=== PATIENT | female | born 1990 | race Caucasian/White ===

== ENCOUNTER → 2017-04-17 | Outpatient (CLI) | payer MEDICAID ==
[2017-04-17 16:33] LABS: CH 27.7; HDW 2.41; HGB 12.7 gm/dL (11.4-16.0); MCH 28.1 pg (25.0-35.0); MCHC 33.4 g/dL (31.0-37.0); MCV 84.2 fL (80.0-100.0); Mean Platelet Volume 7.3; RBC 4.51 m/uL (3.80-5.40); RDW 13.8 % (11.5-15.5); WBC 11.4 k/uL (3.8-10.6)
[2017-04-17 16:43] LABS: Glucose 81 mg/dL (74-99); Non-African American GFR(MDRD) >60 (>60 ml/min/1.73 sqM)
[2017-04-17 17:14] LABS: Hepatitis B Surface Ag Index 0.05
--- NOTE | 2017-04-17 21:19 | US ---
EXAMINATION TYPE: US OB <= 14 wk fetus DATE OF EXAM: 04/17/2017 COMPARISON: NONE CLINICAL HISTORY: Confirm Dates Z36. LGA EXAM PERFORMED: Transabdominal (TA) EXAM MEASUREMENTS: GESTATIONAL AGE / DATING Physician Established: (13 weeks/2 days) EDC: 10/21/2017 Dates by LMP: (13 weeks/2 days) EDC: 10/21/2017 First Scan: today Dates by Current Scan for: (13 weeks/2 days) EDC: 10/21/2017 MATERNAL ANATOMY Uterus: 13.2 x 7.0 x 6.8cm Right Ovary: 2.5 x 1.5 x 1.7cm Left Ovary: not seen Post CDS / Adnexa: wnl Presence of free fluid: no Presence of corpus luteal cyst: not seen Presence of subchorionic bleed: no GESTATION / SURVEY CRL: 7.2cm (13 weeks/2 days) Yolk Sac (normal less than 6mm): not seen Heart Rate: 153 bpm Rhythm: Normal IUP: single Nuchal Translucency 10-14wks (normal less than 3mm): not measured due to constant movement Date of LMP: 01/14/2017 Beta HcG (if available): NA Single live intrauterine gestation is seen as gestational sac and pole are identified. Yolk sac is not clearly present. No free fluid is seen in pelvic cul-de-sac. Right ovary is seen. Left ovary is not clearly identified. No suspicious adnexal masses present bilat erally. IMPRESSION: Single live intrauterine gestation is present, mean crown-rump length is 7.2 cm corresponding to 13 w [place] 2 day old fetus.
[2017-04-18 02:10] LABS: Treponemal Ab Non-Reactive (Non-Reactive)
[2017-04-18 04:36] LABS: Toxoplasma Antibody (IgG) <3.0 IU/mL (<7.2)
== END | disposition home or self-care (01) ==
LOC: RADUSWWP 15:34
PROVIDERS: ATTEND Obstetrics & Gynecology
DX: Z36 Encounter for antenatal screening of mother (principal)
CPT/HCPCS: 76801; 82565; 82947; 85027; 86762; 86777; 86778; 86780; 86850; 86900; 86901; 87340; 87390

== ENCOUNTER → 2017-05-29 | Outpatient (CLI) | payer MEDICAID ==
--- NOTE | 2017-05-29 13:36 | US ---
EXAMINATION TYPE: US OB anatomy transabd DATE OF EXAM: 05/29/2017 COMPARISON: Previous study dated 04/17/2017. HISTORY: O36.62X0 Large for dates 2nd Trimester TECHNIQUE: Transabdominal (TA) EXAM MEASUREMENTS: GESTATIONAL AGE / DATING Physician Established: (19 weeks/2 days) EDC: 10/21/2017 Dates by LMP: (19 weeks/2 days) EDC: 10/21/2017 Dates by First Scan: (19 weeks/2 days) EDC: 10/21/2017 Dates by Current Scan for: (18 weeks/4 days) EDC: 10/26/2017 SURVEY IUP: Single PLACENTA: Anterior PREVIA: No previa ODETTE: 12.2 cm Normal CERVICAL LENGTH (transabdominal: norm > 3.0cm): 4.5 cm BIOMETRY PRESENTATION: Vertex BPD: 4.1 cm 18 weeks / 3 days HC: 15.2 cm 18 weeks / 2 days AC: 13.2 cm 18 weeks / 5 days FL: 3.1 cm 19 weeks / 4 days ESTIMATED WEIGHT IN GRAMS: 268 grams ESTIMATED WEIGHT IN LBS/OZS: 0 lbs. 9 oz. WEIGHT PERCENTAGE BASED ON ESTABLISHED DATE: 29.3 % HC/AC: 1.2 Normal FL/AC: 23.4 Normal HEART RATE: 151 bpm RHYTHM: Normal ANATOMY SEEN (within normal limits): * Lateral Vent (< 1 cm) 0.8 cm * Cisterna Magna (< 1.1 cm) 0.5 cm * Nuchal Fold (< 0.6 cm) 0.3 cm * Cerebellum (varies with age) 1.8 cm Choroid Plexus (bilateral) Midline Falx Cavus Septi Pellucidi Four Chamber Heart Stomach signal in CX Situs Nose / Lips Diaphragm Kidneys (bilateral) Bladder Cord Insert Three Vessel Cord Longitudinal Spine Transverse Spine Arms (bilateral) Legs (bilateral) ANATOMY NOT SEEN: Outflow tracts: LVOT/RVOT growth according to dates, patient returning 06/11/2017 for outflow tracts. IMPRESSION: LEIGH FETUS PRESENT IN A VERTEX LIE WITH A GESTATIONAL AGE OF 18 WEEKS 4 DAYS +/- 10 DAYS. ESTIMATED DATE OF CONFINEMENT BASED ON THIS EXAMINATION IS 10/26/2017.
[2017-05-31 08:21] LABS: Alpha Fetoprotein (M.O.M) 0.91 (Negative); B-HCG (M.O.M.) 2.71; Gestational Age (days) 2; Human Chorionic Gonadotropin 48.2 IU/mL; Inhibin A (M.O.M.) 1.55; Interpretation SeeBelow; Maternal Age at EDD (Yrs) 29; Smoker No; Unconjugated Estriol (M.O.M.) 1.04
== END | disposition home or self-care (01) ==
LOC: RADUSWWP 12:02
PROVIDERS: ATTEND Obstetrics & Gynecology
DX: O36.62X0 Maternal care for excessive fetal growth, second trimester, not applicable or unspecified (principal); Z34.02 Encounter for supervision of normal first pregnancy, second trimester; Z3A.19 19 weeks gestation of pregnancy
CPT/HCPCS: 36415; 76811; 82105; 82677; 84702; 86336

== ENCOUNTER → 2017-07-02 | Outpatient (CLI) | payer MEDICAID ==
[2017-07-02 12:22] LABS: CH 28.9; CHCM 32.1; HCT 35.7 % (34.0-46.0); HDW 2.64; HGB 11.6 gm/dL (11.4-16.0); MCH 29.5 pg (25.0-35.0); MCHC 32.5 g/dL (31.0-37.0); MCV 90.7 fL (80.0-100.0); Mean Platelet Volume 7.4; RBC 3.94 m/uL (3.80-5.40); RDW 15.4 % (11.5-15.5); WBC 10.9 k/uL (3.8-10.6)
== END | disposition home or self-care (01) ==
LOC: LABWHC1 10:00
PROVIDERS: ATTEND Obstetrics & Gynecology
DX: Z34.02 Encounter for supervision of normal first pregnancy, second trimester (principal); Z3A.00 Weeks of gestation of pregnancy not specified
CPT/HCPCS: 36415; 82950; 85027; 86850

== ENCOUNTER 2017-10-06 22:25 | Outpatient (CLI) | payer MEDICAID ==
[2017-10-06 23:06] VITALS: BP 129/71; PULSE 80; RESP 16; TEMP 98
--- NOTE | 2017-10-07 11:26 | P.MSEPDOC ---
Presenting Problems - Arrival Data Date of Arrival on Unit: 10/06/17 Time of Arrival on Unit: 22:27 Mode of Transport: Wheelchair - Complaint OB-Reason for Admission/Chief Complaint: Possible Onset of Labor Comment: pt has been feeling tightening all day today. states pain is constant Medical History - Information : 1 Para: 0 Term: 0 : 0 Abortions: Spontaneous or Elective: 0 Number of Living Children: 0 - Gestational Age Gestational Age by RENO (wks/days): 38 Weeks and 0 Days Review of Systems - Review of Systems Constitutional: No problems Breast: No problems ENT: No problems Cardiovascular: No problems Respiratory: No problems Gastrointestinal: No problems Genitourinary: No problems Musculoskeletal: No problems Neurological: No problems Skin: No problems Vital Signs - Temperature Temperature: 98.0 F Temperature Source: Oral - Pulse Right Sitting Brachial Pulse Rate: 80 Pulse Assessment Method: Automatic Cuff - Respirations Respiratory Rate: 16 Oxygen Delivery Method: Room Air - Blood Pressure Right Arm Sitting Blood Pressure: 129/71 Blood Pressure Mean: 90 Blood Pressure Source: Automatic Cuff Medical Screen Scoring (Pre) - Cervical Exam Dilation: 0 cm = 0 Membranes: Intact - Uterine Contractions Frequency: > or = 36 weeks =2 Duration: > 40 seconds = 2 - Maternal Vital Signs Maternal Temperature: N/A Maternal Blood Pressure: N/A Signs of Preeclampsia: N/A Maternal Respirations: N/A - Pain Assessment Pain Location and Character: Upper, Anterior, Abdomen Pain Scale Used: Numeric (1 - 10) Pain Intensity: 5 Pain Management Goal: 2 Pain Description: Tightness Pain Radiation Location: n/a Pain Frequency: Constant Pain Duration: 10 Pain Duration Units: Hours Pain Behavior: Facial Grimacing, Vocalization Pain Aggravating Factors: Activity, Bending Non-Pharmacological Interventions: Position/Reposition - Assessment Baseline FHR: 130 Heart Rate - NICHD Category: Category I (Normal) = 0 NST: Reactive Position: N/A Station: N/A - Total Score Total Score (Pre): 4 - Level of Risk Level of Risk: Low (0-5) Medical Screen Scoring (Post) - Post Treatment Level of Risk Post Treatment Level of Risk: Low (0-5) Physician Notification (Post) - Physician Notified Physician Notified Date: 10/06/17 Physician Notified Time: 23:55 Spoke With: ozuna New Order Received: Yes - Notification Comment Comment: d/c home, follow up 10/10/17 Disposition - Disposition OB Disposition: Discharge to home, Written follow up instructions reviewed Discharge Date: 10/07/17 Discharge Time: 00:00 I agree with the RN Medical Screening Exam: Yes Risk & Benefit of care provided described in d/c instruction: Yes Diagnosis: FALSE LABOR AT OR AFTER 37 COMPLETED WEEKS OF GESTATION
== END 2017-10-07 | disposition home or self-care (01) ==
LOC: FBPOP 22:25
PROVIDERS: ATTEND Obstetrics & Gynecology
DX: O47.1 False labor at or after 37 completed weeks of gestation (principal); Z3A.38 38 weeks gestation of pregnancy
CPT/HCPCS: 59025; 99213

== ENCOUNTER 2017-10-09 14:01 | Inpatient (IN) | payer MEDICAID ==
[2017-10-09] MEDS ORDERED: BUPIVACAINE (PF) 0.25% 30 ML VIAL ONE ×2 (15:35→18:38)
[2017-10-09] MEDS ORDERED: fentaNYL (PF) 50 MCG/ML 5 ML AMP ONE ×2 (15:35→18:38)
[2017-10-09] MEDS ORDERED: SODIUM CHLORIDE 0.9% 100 ML BAG ONE ×2 (15:35→18:38)
[2017-10-09] MEDS ORDERED: CARBOPROST TROMETHAMINE 250 MCG/ML 1 ML AMP IM PRN (16:15)
[2017-10-09] MEDS ORDERED: OXYTOCIN 10 UNIT/ML 1 ML VIAL IM PRN (16:15)
[2017-10-09] MEDS ORDERED: METHYLERGONOVINE 0.2 MG/ML 1 ML AMP IM PRN (16:15)
[2017-10-09] MEDS ORDERED: TERBUTALINE 1 MG/ML VIAL SQ PRN (16:15)
[2017-10-09] MEDS ORDERED: LIDOCAINE 1% (PF) 10 MG/ML (30 ML SDV) SQ PRN (16:15)
[2017-10-09] MEDS ORDERED: DINOPROSTONE 10 MG INSERT.ER VAGINAL ONE (16:16)
[2017-10-09 16:22] VITALS: BMI 37.4
[2017-10-09] MEDS ORDERED: BUTORPHANOL 1 MG/ML 1 ML VIAL IV PRN (16:51)
--- NOTE | 2017-10-09 17:25 | P.HPOB ---
History of Present Illness H&P Date: 10/09/17 Chief Complaint: Term at 38 weeks with questionable IUGR and oligohydramnios Angela is a 27-year-old at 38 weeks gestation who was seen yesterday with MFM and noted to have oligohydramnios. As she already had a baby measuring approximately the 11th percentile and with oligohydramnios a decision for induction was made between Dr. Andino and maternal- medicine. She is seen today for Cervidil ripening of her cervix due to her cervix being fingertip and approximately 70% effaced -3 station. Cervidil was placed without difficulty and the plan will be for induction of labor in the morning. Risks and benefits of this were reviewed with the patient between she and Dr. CHRISTY. Her course up to this point had been generally unremarkable and only recently was noted to have smaller than average measurements for baby B and then the oligohydramnios yesterday. Pertinent labs do include be negative blood type Rh antibody was negative. Rubella immune, hepatitis B surface antigen and RPR were both negative as was HIV. GBS was also negative. On physical exam vital signs are stable and afebrile. Heart regular, lungs clear, extremities without pain. Osteopathic exam is unremarkable. heart tones are in the 130s to 140s and reactive prior to placement of the Cervidil. Cervidil placed without difficulty. Assessment intrauterine at term. Oligohydramnios with SGA versus IUGR. Plan induction of labor in a.m. after cervical ripening Past Medical History Past Medical History: No Reported History History of Any Multi-Drug Resistant Organisms: None Reported Additional Past Surgical History / Comment(s): wisdom teeth removed Past Anesthesia/Blood Transfusion Reactions: No Reported Reaction Past Psychological History: No Psychological Hx Reported Smoking Status: Never smoker Past Alcohol Use History: None Reported - Past Family History Father Family Medical History: Hypertension Medications and Allergies Home Medications Medication Instructions Recorded Confirmed Type Pnv,Calcium 72/Iron/Folic Acid 1 tab PO DAILY 10/06/17 10/09/17 History [ Plus Tablet] Allergies Allergy/AdvReac Type Severity Reaction Status Date / Time No Known Allergies Allergy Verified 10/09/17 16:10 Exam Osteopathic Statement: *. No significant issues noted on an osteopathic structural exam other than those noted in the History and Physical/Consult. - Vital Signs Vital signs: Vital Signs Temp Pulse Resp BP Pulse Ox 10/09/17 16:17 96.0 F L 110 H 17 127/81 97 Intake and Output 10/09/17 10/09/17 10/09/17 06:59 14:59 22:59 Other: Weight 89.811 kg Patient Weight 10/10/17 06:59 Weight 89.811 kg
[2017-10-09] MEDS ORDERED: KETOROLAC 30 MG/ML 1 ML VIAL ONE (18:38)
[2017-10-09] MEDS ORDERED: OXYTOCIN 10 UNIT/ML 1 ML VIAL ONE (18:38)
[2017-10-09] MEDS ORDERED: MORPHINE SULFATE (PF) 0.3 MG/0.3 ML SYR ONE (18:38)
[2017-10-09] MEDS ORDERED: ONDANSETRON 4 MG/2 ML VIAL ONE (18:38)
[2017-10-10 05:59] LABS: Basophils % (A) 0 %; Eosinophils # (A) 0.1 k/uL (0-0.7); Eosinophils % (A) 1 %; HCT 42.1 % (34.0-46.0); HGB 13.2 gm/dL (11.4-16.0); Lymphocytes # (A) 2.9 k/uL (1.0-4.8); Lymphocytes % (A) 20 %; MCH 28.1 pg (25.0-35.0); MCHC 31.4 g/dL (31.0-37.0); MCV 89.5 fL (80.0-100.0); Mean Platelet Volume 8.9; Monocytes # (A) 0.8 k/uL (0-1.0); Monocytes % (A) 5 %; Neutrophils # (A) 10.2 k/uL (1.3-7.7); Neutrophils % (A) 72 %; Platelet Count 212 k/uL (150-450); RDW 15.9 % (11.5-15.5); WBC 14.2 k/uL (3.8-10.6)
[2017-10-10] MEDS: LACTATED RINGERS 1,000 ML IV SCH (06:06)
[2017-10-10] MEDS: OXYTOCIN 20 UNITS/1000 ML NS 1,000 ML IV SCH ×2 (06:06→20:33)
[2017-10-10] MEDS ORDERED: ceFAZolin IN SWFI 2 GM/20 ML SYRINGE IVP STA (18:17)
[2017-10-10] MEDS ORDERED: CITRIC ACID-SODIUM CITRATE 15 ML CUP PO ONE (18:17)
[2017-10-10] MEDS ORDERED: ONDANSETRON 4 MG/2 ML VIAL IVP PRN (19:29)
[2017-10-10] MEDS ORDERED: diphenhydrAMINE 25 MG CAP PO PRN (19:29)
[2017-10-10] MEDS ORDERED: diphenhydrAMINE 50 MG/ML 1 ML VIAL IVP PRN ×2 (19:29)
[2017-10-10] MEDS ORDERED: METOCLOPRAMIDE 5 MG/ML 2 ML VIAL IVP PRN (19:29)
[2017-10-10] MEDS ORDERED: NALOXONE 0.4 MG/ML 1 ML VIAL IV PRN (19:29)
[2017-10-10] MEDS ORDERED: diphenhydrAMINE 50 MG CAP PO PRN (19:29)
[2017-10-10] MEDS ORDERED: ZOLPIDEM 5 MG TAB PO PRN (19:29)
[2017-10-10] MEDS ORDERED: ONDANSETRON ODT 4 MG TAB PO PRN (19:32)
--- NOTE | 2017-10-10 19:39 | P.OP ---
Date of Procedure: 10/10/17 Preoperative Diagnosis: 1. at 38 weeks 2 days 2. IUGR 3. oligohydramnios 4. failure to progress Postoperative Diagnosis: 1. at 38 weeks 2 days 2. IUGR 3. oligohydramnios 4. failure to progress Procedure(s) Performed: Primary low transverse Anesthesia: epidural Surgeon: Becki Andino Security Field Supervisor #1: Jo Rodriguez Estimated Blood Loss (ml): 400 IV fluids (ml): 800 Urine output (ml): 100 Pathology: other (placenta) Condition: stable Disposition: floor Indications for Procedure: 27-year-old presented at 38 weeks and 2 days for induction of labor due to oligohydramnios and IUGR. She was diagnosed with IUGR 2 weeks ago and had another ultrasound with maternal- medicine earlier this week. When she went that ultrasound her fluid level was only 3.7 cm and the recommended delivery. Her cervix was closed so she came in for Cervidil induction of labor. After the Cervidil her cervix was 1 cm dilated, 70% effaced, and -3 station. Pitocin was started and she was randy every few minutes but only feeling them mildly. heart tones were 130-135 with minimal variability and reactive. Amniotomy was performed around 8 am clear fluid noted. She did progressed about 2-1/2 cm and was comfortable with an epidural. She did not progress further than this despite adequate contractions. The baby did start having some variable decelerations. At this point section was called and informed consent was obtained. Operative Findings: viable male, Apgars 9,9, weight 5#13oz, normal uterus, tubes and ovaries. Description of Procedure: Patient was taken to the operating room where spinal anesthesia was found be adequate. She was prepped and draped in normal sterile fashion in dorsal supine position with a leftward tilt. Pfannenstiel skin incision was made the scalpel and carried through to the underlying layer of fascia with the scalpel. Fascia was incised in midline and carried bilaterally with the Mao scissors. The superior aspect of the fascial incision was grasped with Erika clamps elevated and the underlying rectus muscles dissected off with the Mao's. Attention was then turned to inferior aspect of same incision which in a similar fashion was grasped tented up and the underlying rectus muscles dissected off with the Mao's. The rectus muscles were the midline and the peritoneum was identified tented up and entered sharply with the scalpel. The incision was extended superiorly and inferiorly with good visualization of the bladder. The bladder blade was inserted and the vesicouterine peritoneum was incised the Metzenbaums then carried bilaterally and bladder flap created digitally. A low transverse incision was then made on the uterus with the scalpel. This was carried bilaterally and digital manner. 's head delivered atraumatically, nose and mouth bulb suctioned, cord clamped and cut, infant handed off to waiting nurses. Apgars 9,9, weight 5 lbs. 13 oz. Placenta delivered manually, intact with three-vessel cord. The uterus is exteriorized and cleared of all clots and debris. The uterine incision was closed with 0 Vicryl in a running locked fashion. Second layer of the same sutures used in imbricating fashion to obtain excellent hemostasis. Bladder flap was then reapproximated using 2-0 Vicryl in a running fashion. Both ovaries and tubes appeared normal. The uterus was placed back into the abdomen. The peritoneum was reapproximated using 2-0 Vicryl in a running fashion. The muscles were reapproximated using 2-0 Vicryl in interrupted fashion. The fascia was reapproximated using 0 Vicryl in a running fashion. The subcutaneous tissues closed with 3-0 Vicryl running fashion. The skin was closed jerrod. Patient tolerated the procedure well, sponge and instrument counts were correct times 2 and she was taken to the recovery room in stable condition.
[2017-10-10] MEDS: SENNOSIDES-DOCUSATE SODIUM 1 EACH TAB PO SCH (22:55)
[2017-10-11] MEDS: KETOROLAC 30 MG/ML 1 ML VIAL IVP SCH ×5 (00:53→19:50)
[2017-10-11] MEDS: LACTATED RINGERS 1,000 ML IV SCH ×5 (00:53→19:50)
[2017-10-11] MEDS: ACETAMINOPHEN TAB 325 MG TAB PO PRN ×2 (04:24→13:27)
[2017-10-11 08:39] LABS: Basophils % (A) 0 %; Eosinophils # (A) 0.1 k/uL (0-0.7); Eosinophils % (A) 1 %; HCT 33.2 % (34.0-46.0); HGB 10.8 gm/dL (11.4-16.0); Lymphocytes # (A) 2.6 k/uL (1.0-4.8); Lymphocytes % (A) 21 %; MCH 28.2 pg (25.0-35.0); MCHC 32.6 g/dL (31.0-37.0); MCV 86.4 fL (80.0-100.0); Mean Platelet Volume 9.4; Monocytes # (A) 0.5 k/uL (0-1.0); Monocytes % (A) 4 %; Neutrophils # (A) 8.9 k/uL (1.3-7.7); Neutrophils % (A) 73 %; Platelet Count 159 k/uL (150-450); RBC 3.84 m/uL (3.80-5.40); RDW 15.1 % (11.5-15.5); WBC 12.3 k/uL (3.8-10.6)
--- NOTE | 2017-10-11 11:30 | P.PNOBGPC ---
Subjective - Subjective Principal diagnosis: S/P 1* low transverse postoperative day #1 Interval history: Patient seen and examined. Denies nausea, vomiting, chest pain, sugars of breath or calf pain. Her has been removed and she's been to the bathroom to void once. She is passing flatus. Patient reports: Reports appetite normal, Reports voiding normally, Reports pain well controlled, Reports ambulating normally : doing well Objective - Vital Signs Latest vital signs: Vital Signs Temp Pulse Pulse Resp BP Pulse Ox 10/11/17 08:00 97.6 F 71 18 126/69 97 10/11/17 04:00 98.8 F 84 16 130/68 96 10/11/17 00:00 98.3 F 71 16 144/75 95 10/10/17 21:41 98.5 F 69 16 119/59 96 10/10/17 21:11 86 16 128/63 96 10/10/17 20:57 98.5 F 76 16 122/61 96 10/10/17 20:26 77 16 119/60 10/10/17 20:13 83 16 115/57 10/10/17 19:57 87 16 121/55 10/10/17 19:43 85 16 139/69 97 10/10/17 19:25 99.6 F 85 16 136/63 Intake and Output 10/10/17 10/11/17 10/11/17 22:59 06:59 14:59 Intake Total 43.35 700 Output Total 300 200 Balance 43.35 400 -200 Intake: IV 700 Lactated Ringers 1,000 ml 700 @ 125 mls/hr IV .Q8H MARY Rx#:[id number] Intake, IV Titration 43.35 Amount Oxytocin 20 Units/1000 ml 43.35 Ns 1,000 ml @ 1 MILLIUNIT/MIN 3 mls/hr IV .Q24H MARY Rx#:[id number] Output: Urine 300 200 Other: Voiding Method Indwelling Catheter Toilet # Voids 0 1 - Exam Lungs: bilateral: normal Chest: Normal S1, Normal S2 Extremities: Present: normal Abdomen: Present: normal appearance, soft. Absent: distention, tenderness Incision: Present: normal, dry, intact Uterus: Present: normal, firm - Labs Labs: Abnormal Lab Results - Last 24 Hours (Table) 10/11/17 Range/Units 08:16 WBC 12.3 H (3.8-10.6) k/uL Hgb 10.8 L (11.4-16.0) gm/dL Hct 33.2 L (34.0-46.0) % Neutrophils # 8.9 H (1.3-7.7) k/uL Assessment and Plan (1) Status post primary low transverse section Current Visit: Yes Status: Acute Code(s): Z98.891 - HISTORY OF UTERINE SCAR FROM PREVIOUS SURGERY SNOMED Code(s): 598982083 Plan: 1. regular diet 2. increase ambulation
[2017-10-11] MEDS: SENNOSIDES-DOCUSATE SODIUM 1 EACH TAB PO SCH ×2 (13:27→20:54)
[2017-10-11] MEDS: IBUPROFEN 600 MG TAB PO PRN (22:31)
[2017-10-12] MEDS: HYDROcodone/APAP 5-325MG 1 EACH TAB PO PRN ×4 (00:56→23:37)
[2017-10-12] MEDS: IBUPROFEN 600 MG TAB PO PRN ×3 (04:14→20:09)
[2017-10-12] MEDS: LACTATED RINGERS 1,000 ML IV SCH (05:19)
[2017-10-12] MEDS: KETOROLAC 30 MG/ML 1 ML VIAL IVP SCH ×2 (05:19→06:43)
[2017-10-12] MEDS: SENNOSIDES-DOCUSATE SODIUM 1 EACH TAB PO SCH ×2 (08:03→20:07)
[2017-10-12] MEDS ORDERED: HYDROcodone/APAP 5-325MG 1 EACH TAB PO PRN (09:00)
--- NOTE | 2017-10-12 09:04 | P.PNOBGPC ---
Subjective - Subjective Principal diagnosis: S/P 1*LTCS POD #2 Interval history: Pt seen and examined. Doing well. + flatus Patient reports: Reports appetite normal, Reports voiding normally, Reports pain well controlled, Reports ambulating normally [place]: doing well Objective - Vital Signs Latest vital signs: Vital Signs Temp Pulse Pulse Resp BP Pulse Ox 10/12/17 08:00 98.3 F 77 16 127/69 96 10/12/17 00:00 98.0 F 70 18 124/71 100 10/11/17 16:00 98.3 F 84 18 125/70 97 10/11/17 12:00 97.7 F 78 18 129/75 97 - Exam Lungs: bilateral: normal Chest: Normal S1, Normal S2 Extremities: Present: normal Abdomen: Present: normal appearance, soft. Absent: distention, tenderness Incision: Present: normal, dry, intact Uterus: Present: normal, firm Assessment and Plan (1) Status post primary low transverse section Current Visit: Yes Status: Acute Code(s): Z98.891 - HISTORY OF UTERINE SCAR FROM PREVIOUS SURGERY SNOMED Code(s): 614834136 Plan: 1. cont po care
[2017-10-13] MEDS: IBUPROFEN 600 MG TAB PO PRN (05:33)
[2017-10-13 09:05] VITALS: BP 124/79; PULSE 81; RESP 20; TEMP 97.6
--- NOTE | 2017-10-13 09:56 | P.DS ---
Providers Date of admission: 10/09/17 15:34 Expected date of discharge: 10/13/17 Attending physician: Becki Andino Primary care physician: Stated None - Discharge Diagnosis(es) (1) Status post primary low transverse section Current Visit: Yes Status: Acute Hospital Course: Pt presented for induction of labor due to IUGR and oligohydramnios. She underwent a primary low transverse for failure to progress. Her postoperative course was uncomplicated. HEr pain is controlled. She is ambulating and voiding without difficulty. She will be discharged home POD #3 in stable condition to follow up with me in 1 week. Plan - Discharge Summary New Discharge Prescriptions: New HYDROcodone/APAP 5-325MG [[place] 5-325] 1 - 2 tab PO Q6HR PRN #30 tab PRN Reason: Pain Ibuprofen [Motrin] 600 mg PO Q6HR PRN #30 tab PRN Reason: Mild Pain Or Fever >= 100.5 No Action Pnv,Calcium 72/Iron/Folic Acid [ Plus Tablet] 1 tab PO DAILY Discharge Medication List Pnv,Calcium 72/Iron/Folic Acid [ Plus Tablet] 1 tab PO DAILY 10/06/17 [ History] HYDROcodone/APAP 5-325MG [[place] 5-325] 1 - 2 tab PO Q6HR PRN #30 tab 10/12/17 [ Rx] Ibuprofen [Motrin] 600 mg PO Q6HR PRN #30 tab 10/12/17 [Rx] Follow up Appointment(s)/Referral(s): Becki Andino DO [Doctor of Osteopathic Medicine] - 1 Week
[2017-10-13] MEDS: SENNOSIDES-DOCUSATE SODIUM 1 EACH TAB PO SCH (10:50)
== END 2017-10-13 10:30 | disposition home or self-care (01) | DRG 765 ==
LOC: 4FBP 15:34
PROVIDERS: ADMIT Obstetrics & Gynecology; ATTEND Obstetrics & Gynecology
PROC: 10907ZC Drainage of Amniotic Fluid, Therapeutic from Products of Conception, Via Natural or Artificial Opening (ICD-10-PCS; principal; 2017-10-09)
PROC: 3E0R3BZ Introduction of Anesthetic Agent into Spinal Canal, Percutaneous Approach (ICD-10-PCS; principal; 2017-10-09)
PROC: 3E0P7VZ Introduction of Hormone into Female Reproductive, Via Natural or Artificial Opening (ICD-10-PCS; principal; 2017-10-09)
PROC: 10D00Z1 Extraction of Products of Conception, Low, Open Approach (ICD-10-PCS; principal; 2017-10-09)
PROC: 3E033VJ Introduction of Other Hormone into Peripheral Vein, Percutaneous Approach (ICD-10-PCS; principal; 2017-10-09)
PROC: 00HU33Z Insertion of Infusion Device into Spinal Canal, Percutaneous Approach (ICD-10-PCS; principal; 2017-10-09)
DX: O41.03X0 Oligohydramnios, third trimester, not applicable or unspecified (principal); O36.5930 Maternal care for other known or suspected poor fetal growth, third trimester, not applicable or unspecified; Z37.0 Single live birth; O76 Abnormality in fetal heart rate and rhythm complicating labor and delivery; O62.2 Other uterine inertia; Z3A.38 38 weeks gestation of pregnancy
CPT/HCPCS: 85025; 86850; 86900; 86901; 88307

== ENCOUNTER 2018-06-27 10:23 | Emergency (ER) | payer MEDICAID, OTHER ==
[2018-06-27 10:35] VITALS: BP 146/88; PULSE 79; RESP 20; TEMP 98.2
--- NOTE | 2018-06-27 11:19 | ED ---
General Adult HPI - General Chief complaint: Needlestick/Exposure Stated complaint: Needle stick [facility] Time Seen by Provider: 06/27/18 10:38 Source: patient, RN notes reviewed Mode of arrival: ambulatory Limitations: no limitations - History of Present Illness Initial comments: 27-year-old female presents emergency department with chief complaint of needlestick. Patient states that she was given a subcu injection at [facility]. Patient states that she poked the patient in the next that poked her thumb. Patient states that they believe that she washed out thoroughly. She is up-to- date on her tetanus. There is no known medical diseases from the patient that she was given an injection 2. Patient states that they did draw the patient's blood and sent to the emergency department. Patient has no other concerns or complaints. - Related Data Home Medications Medication Instructions Recorded Confirmed Norgestimate-Ethinyl Estradiol 1 tab PO DAILY 06/27/18 06/27/18 [Ortho Tri-Cyclen 28 Tablet] Allergies Allergy/AdvReac Type Severity Reaction Status Date / Time No Known Allergies Allergy Verified 06/27/18 11:10 Review of Systems ROS Statement: Those systems with pertinent positive or pertinent negative responses have been documented in the HPI. ROS Other: All systems not noted in ROS Statement are negative. Past Medical History Past Medical History: No Reported History History of Any Multi-Drug Resistant Organisms: None Reported Past Surgical History: Section Additional Past Surgical History / Comment(s): wisdom teeth removed Past Anesthesia/Blood Transfusion Reactions: No Reported Reaction Past Psychological History: No Psychological Hx Reported Smoking Status: Never smoker Past Alcohol Use History: Occasional Past Drug Use History: None Reported - Past Family History Father Family Medical History: Hypertension General Exam Limitations: no limitations General appearance: alert, in no apparent distress Head exam: Present: atraumatic, normocephalic, normal inspection Neck exam: Present: normal inspection. Absent: tenderness, meningismus, lymphadenopathy Respiratory exam: Present: normal lung sounds bilaterally. Absent: respiratory distress, wheezes, rales, rhonchi, stridor Cardiovascular Exam: Present: regular rate, normal rhythm, normal heart sounds. Absent: systolic murmur, diastolic murmur, rubs, gallop, clicks Extremities exam: Present: other (Puncture wound noted to the first digit) Skin exam: Present: warm, dry, intact, normal color. Absent: rash Course Vital Signs 06/27/18 10:33 Temperature 98.2 F Pulse Rate 79 Respiratory 20 Rate Blood Pressure 146/88 O2 Sat by Pulse 99 Oximetry Medical Decision Making - Medical Decision Making 27-year-old female presented for needlestick. Patient has exposure patient's lab. We discussed prophylaxis. She states that she'll wait for the rapid HIV performed at this time. We did discuss recheck and 6 weeks and 3 months. Disposition Clinical Impression: Needlestick injury accident Disposition: HOME SELF-CARE Condition: Stable Instructions: Needle Stick Injuries (ED) Additional Instructions: Please return to the Emergency Department if symptoms worsen or any other concerns. Is patient prescribed a controlled substance at d/c from ED?: No Referrals: None,Stated [Primary Care Provider] - 1-2 days Time of Disposition: 11:19
[2018-06-28 11:29] LABS: HIV 1 AB Non-Reactive; HIV AB P24 Non-Reactive; HIV P24 AG Non-Reactive
[2018-06-28 11:31] LABS: Hepatitis B Surface AB- Quant 340.7
[2018-06-28 11:33] LABS: Hepatitis C IgG Antibody Non-Reactive
== END 2018-06-27 11:25 | disposition home or self-care (01) ==
LOC: EC 10:23
DX: S61.031A Puncture wound without foreign body of right thumb without damage to nail, initial encounter (principal); Z79.3 Long term (current) use of hormonal contraceptives; W46.1XXA Contact with contaminated hypodermic needle, initial encounter; Y92.69 Other specified industrial and construction area as the place of occurrence of the external cause; Y99.0 Civilian activity done for income or pay
CPT/HCPCS: 36415; 86706; 86803; 87390; 99282

== ENCOUNTER 2018-12-27 06:50 | Emergency (ER) | payer MEDICAID ==
[2018-12-27 06:56] VITALS: RESP 18; TEMP 98.5
[2018-12-27] MEDS ORDERED: ONDANSETRON 4 MG/2 ML VIAL IVP STA (07:07)
[2018-12-27] MEDS ORDERED: SODIUM CHLORIDE 0.9% 1,000 ML IV ONE (07:07)
[2018-12-27 07:32] LABS: Basophils % (A) 0 %; Eosinophils # (A) 0.1 k/uL (0-0.7); Eosinophils % (A) 1 %; HCT 43.4 % (34.0-46.0); HGB 14.1 gm/dL (11.4-16.0); Lymphocytes # (A) 0.8 k/uL (1.0-4.8); Lymphocytes % (A) 7 %; MCH 25.8 pg (25.0-35.0); MCHC 32.4 g/dL (31.0-37.0); MCV 79.6 fL (80.0-100.0); Monocytes # (A) 0.6 k/uL (0-1.0); Monocytes % (A) 5 %; Neutrophils # (A) 9.7 k/uL (1.3-7.7); Neutrophils % (A) 86 %; Platelet Count 271 k/uL (150-450); RBC 5.45 m/uL (3.80-5.40); RDW 13.8 % (11.5-15.5); WBC 11.4 k/uL (3.8-10.6)
[2018-12-27 07:41] LABS: ALT 29 U/L (9-52); AST 27 U/L (14-36); Albumin 4.1 g/dL (3.5-5.0); Alkaline Phosphatase 114 U/L (38-126); Amylase 40 U/L (30-110); Anion Gap 11 mmol/L; Blood Urea Nitrogen 12 mg/dL (7-17); Calcium 9.5 mg/dL (8.4-10.2); Carbon Dioxide 22 mmol/L (22-30); Chloride 107 mmol/L (98-107); Glucose 115 mg/dL (74-99); Lipase 97 U/L (23-300); Potassium 4.6 mmol/L (3.5-5.1); Sodium 140 mmol/L (137-145); Total Bilirubin 0.6 mg/dL (0.2-1.3); Total Protein 7.8 g/dL (6.3-8.2)
[2018-12-27 07:42] LABS: Appearance,Urine Cloudy (Clear); Bacteria,Urine Occasional /hpf; Bilirubin,Urine Negative (Negative); Blood,Urine Negative (Negative); Color,Urine Yellow; Glucose,Urine (UA) Negative (Negative); Ketones,Urine Trace (Negative); Leukocyte Esterase,Urine Negative (Negative); Mucus,Urine Rare /hpf; Nitrite,Urine Negative (Negative); PH, Urine 5.5 (5.0-8.0); Protein,Urine Trace (Negative); Specific Gravity,Urine 1.022 (1.001-1.035); Squamous Epithelial Cell,Urine 2 /hpf (0-4); Urobilinogen,Urine <2.0 mg/dL (<2.0); WBC,Urine 1 /hpf (0-5)
--- NOTE | 2018-12-27 07:42 | ED ---
General Adult HPI - General Chief complaint: Abdominal Pain Stated complaint: Upper Abd Pain Time Seen by Provider: 12/27/18 07:12 Source: patient, family Mode of arrival: ambulatory Limitations: no limitations - History of Present Illness Initial comments: Dictation was produced using sailsquare dictation software. please excuse any gramm atical, word or spelling errors. Chief Complaint: 28-year-old femalepast medical history presents with persistent nausea vomiting and diarrhea since 2 AM today. History of Present Illness: Patient is a 28-year-old female. She has no significant past medical history. 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 She reports that since 2 AM she's been having persistent abdominal cramps, nausea vomiting and diarrhea. States that she's been having significant amounts of watery diarrhea that has been uncontrolled. She does have colicky type pain that's diffuse in her abdomen mainly localized to her left upper quadrant. However radiates diffusely to return to her abdomen. Her has had similar symptoms however not as severe recently. She does work at [employer] where she reports taking care of a patient with Clostridium difficile. Patient denies any fever however she does complain of some chills. No blood in her stool. Patient does have emesis is nonbilious nonbloody picture. The ROS documented in this emergency department record has been reviewed and confirmed by me. Those systems with pertinent positive or negative responses have been documented in the HPI. All other systems are other negative and/or noncontributory. PHYSICAL EXAM: General Impression: Alert and oriented x3, not in acute distress HEENT: Normocephalic atraumatic, extra-ocular movements intact, pupils equal and reactive to light bilaterally, jamming his membranes Cardiovascular: Heart regular rate and rhythm, S1&S2 audible, no murmurs, rubs or gallops Chest: Lungs clear to auscultation bilaterally, no rhonchi, no wheeze, no rales Abdomen: Bowel sounds present, abdomen soft, mild tenderness to the left upper quadrant, non-distended, no organomegaly Musculoskeletal: Pulses present and equal in all extremities, no peripheral edema Motor: no focal deficits noted Neurological: CN II-XII grossly intact, no focal motor or sensory deficits noted Skin: Intact with no visualized rashes Psych: Normal affect and mood ED course: 28-year-old female with clinical presentation consistent with gastroenteritis. Vital signs upon arrival are within acceptable limits. Patient does appear mildly dehydrated.Laboratory evaluation obtained. Mild leukocytosis of 11.4. Rest of CBC unremarkable grossly. Metabolic panel is unremarkable. Urinalysis does not suggest urinary tract infection. There is trace ketonuria secondary to dehydration. KUB x-ray shows no acute processes. Patient is tolerating liquids at bedside. Patient given prescription for antinausea, antidiarrhea and antispasmodic medication. Patient told to maintain hydration. Patient's symptoms likely self-limiting however she should seek medical attention should she have worsening symptoms. Patient told that if her diarrhea becomes bloody or mucousy that she may need antibiotics for bacterial gastroenteritis. Patient has not been on antibiotics. There is very low clinical suspicion of Clostridium difficile colitis. She is however exposed to a C. diff at the [employer]. Told to follow-up with primary care physician for told to return to the emergency department for evaluation of C. diff colitis for symptoms are persistent. - Related Data Home Medications Medication Instructions Recorded Confirmed Norgestimate-Ethinyl Estradiol 1 tab PO DAILY 06/27/18 06/27/18 [Ortho Tri-Cyclen 28 Tablet] Previous Rx's Medication Instructions Recorded Dicyclomine [Bentyl] 10 mg PO TID PRN #12 capsule 12/27/18 Loperamide [Imodium] 2 mg PO QID PRN #12 capsule 12/27/18 Ondansetron Odt [Zofran Odt] 4 mg PO Q8HR PRN #12 tab 12/27/18 Allergies Allergy/AdvReac Type Severity Reaction Status Date / Time No Known Allergies Allergy Verified 12/27/18 06:56 Review of Systems ROS Statement: Those systems with pertinent positive or pertinent negative responses have been documented in the HPI. ROS Other: All systems not noted in ROS Statement are negative. Past Medical History Past Medical History: No Reported History History of Any Multi-Drug Resistant Organisms: None Reported Past Surgical History: Section Additional Past Surgical History / Comment(s): wisdom teeth removed Past Anesthesia/Blood Transfusion Reactions: No Reported Reaction Past Psychological History: No Psychological Hx Reported Smoking Status: Never smoker Past Alcohol Use History: Occasional Past Drug Use History: None Reported - Past Family History Father Family Medical History: Hypertension General Exam Limitations: no limitations Course Vital Signs 12/27/18 06:54 Temperature 98.5 F Pulse Rate 96 Respiratory 18 Rate Blood Pressure 127/80 O2 Sat by Pulse 99 Oximetry Medical Decision Making - Lab Data Result diagrams: 12/27/18 07:20 12/27/18 07:20 Lab Results 12/27/18 12/27/18 12/27/18 Range/Units 07:20 07:20 07:20 WBC 11.4 H (3.8-10.6) k/uL RBC 5.45 H (3.80-5.40) m/uL Hgb 14.1 (11.4-16.0) gm/dL Hct 43.4 (34.0-46.0) % MCV 79.6 L (80.0-100.0) fL MCH 25.8 (25.0-35.0) pg MCHC 32.4 (31.0-37.0) g/dL RDW 13.8 (11.5-15.5) % Plt Count 271 (150-450) k/uL Neutrophils % 86 % Lymphocytes % 7 % Monocytes % 5 % Eosinophils % 1 % Basophils % 0 % Neutrophils # 9.7 H (1.3-7.7) k/uL Lymphocytes # 0.8 L (1.0-4.8) k/uL Monocytes # 0.6 (0-1.0) k/uL Eosinophils # 0.1 (0-0.7) k/uL Basophils # 0.0 (0-0.2) k/uL Sodium 140 (137-145) mmol/L Potassium 4.6 (3.5-5.1) mmol/L Chloride 107 (98-107) mmol/L Carbon Dioxide 22 (22-30) mmol/L Anion Gap 11 mmol/L BUN 12 (7-17) mg/dL Creatinine 0.65 (0.52-1.04) mg/dL Est GFR (CKD-EPI)AfAm >90 (>60 ml/min/1.73 sqM) Est GFR (CKD-EPI)NonAf >90 (>60 ml/min/1.73 sqM) Glucose 115 H (74-99) mg/dL Calcium 9.5 (8.4-10.2) mg/dL Total Bilirubin 0.6 (0.2-1.3) mg/dL AST 27 (14-36) U/L ALT 29 (9-52) U/L Alkaline Phosphatase 114 (38-126) U/L Total Protein 7.8 (6.3-8.2) g/dL Albumin 4.1 (3.5-5.0) g/dL Amylase 40 (30-110) U/L Lipase 97 (23-300) U/L Urine Color Urine Appearance (Clear) Urine pH (5.0-8.0) Ur Specific [place] (1.001-1.035) Urine Protein (Negative) Urine Glucose (UA) (Negative) Urine Ketones (Negative) Urine Blood (Negative) Urine Nitrite (Negative) Urine Bilirubin (Negative) Urine Urobilinogen (<2.0) mg/dL Ur Leukocyte Esterase (Negative) Urine WBC (0-5) /hpf Ur Squamous Epith Cells (0-4) /hpf Urine Bacteria (None) /hpf Urine Mucus (None) /hpf Urine HCG, Qual Not Detected (Not Detectd) 12/27/18 Range/Units 07:20 WBC (3.8-10.6) k/uL RBC (3.80-5.40) m/uL Hgb (11.4-16.0) gm/dL Hct (34.0-46.0) % MCV (80.0-100.0) fL MCH (25.0-35.0) pg MCHC (31.0-37.0) g/dL RDW (11.5-15.5) % Plt Count (150-450) k/uL Neutrophils % % Lymphocytes % % Monocytes % % Eosinophils % % Basophils % % Neutrophils # (1.3-7.7) k/uL Lymphocytes # (1.0-4.8) k/uL Monocytes # (0-1.0) k/uL Eosinophils # (0-0.7) k/uL Basophils # (0-0.2) k/uL Sodium (137-145) mmol/L Potassium (3.5-5.1) mmol/L Chloride (98-107) mmol/L Carbon Dioxide (22-30) mmol/L Anion Gap mmol/L BUN (7-17) mg/dL Creatinine (0.52-1.04) mg/dL Est GFR (CKD-EPI)AfAm (>60 ml/min/1.73 sqM) Est GFR (CKD-EPI)NonAf (>60 ml/min/1.73 sqM) Glucose (74-99) mg/dL Calcium (8.4-10.2) mg/dL Total Bilirubin (0.2-1.3) mg/dL AST (14-36) U/L ALT (9-52) U/L Alkaline Phosphatase (38-126) U/L Total Protein (6.3-8.2) g/dL Albumin (3.5-5.0) g/dL Amylase (30-110) U/L Lipase (23-300) U/L Urine Color Yellow Urine Appearance Cloudy H (Clear) Urine pH 5.5 (5.0-8.0) Ur Specific [place] 1.022 (1.001-1.035) Urine Protein Trace H (Negative) Urine Glucose (UA) Negative (Negative) Urine Ketones Trace H (Negative) Urine Blood Negative (Negative) Urine Nitrite Negative (Negative) Urine Bilirubin Negative (Negative) Urine Urobilinogen <2.0 (<2.0) mg/dL Ur Leukocyte Esterase Negative (Negative) Urine WBC 1 (0-5) /hpf Ur Squamous Epith Cells 2 (0-4) /hpf Urine Bacteria Occasional H (None) /hpf Urine Mucus Rare H (None) /hpf Urine HCG, Qual (Not Detectd) Disposition Clinical Impression: Gastroenteritis Disposition: HOME SELF-CARE Condition: Good Instructions (If sedation given, give patient instructions): Gastroenteritis (ED) Prescriptions: Dicyclomine [Bentyl] 10 mg PO TID PRN #12 capsule PRN Reason: abdominal pain Loperamide [Imodium] 2 mg PO QID PRN #12 capsule PRN Reason: Diarrhea Ondansetron Odt [Zofran Odt] 4 mg PO Q8HR PRN #12 tab PRN Reason: Nausea Is patient prescribed a controlled substance at d/c from ED?: No Referrals: None,Stated [Primary Care Provider] - 1-2 days Time of Disposition: 08:50
[2018-12-27] MEDS ORDERED: KETOROLAC 30 MG/ML 1 ML VIAL IVP STA (08:01)
--- NOTE | 2018-12-27 08:11 | XR ---
EXAMINATION TYPE: XR KUB DATE OF EXAM: 12/27/2018 7:55 AM CLINICAL HISTORY: Upper abdominal pain with nausea vomiting and diarrhea. TECHNIQUE: Two Upright KUB images of the abdomen are obtained. COMPARISON: None. FINDINGS: Some paucity of bowel gas is present. Scattered gas is seen in nondistended stomach and sma ll bowel loops throughout the abdomen and pelvis. There is no visceromegaly, pneumoperitoneum, or abn ormal calcification appreciated. The lung bases are clear. Slight scoliotic curvature is present. Ove rlying bra strap noted. IMPRESSION: Overall nonspecific but favor nonobstructive bowel gas pattern.
[2018-12-27 08:58] VITALS: BP 115/78; PULSE 100
== END 2018-12-27 08:58 | disposition home or self-care (01) ==
LOC: EC 06:50
DX: K52.9 Noninfective gastroenteritis and colitis, unspecified (principal); Z79.3 Long term (current) use of hormonal contraceptives
CPT/HCPCS: 36415; 74018; 80053; 81001; 81025; 82150; 83690; 85025; 96361; 96374; 96375; 99284

== ENCOUNTER → 2020-11-16 | Outpatient (CLI) | payer MEDICAID ==
[2020-11-16 14:29] LABS: HCT 36.9 % (34.0-46.0); HGB 12.4 gm/dL (11.4-16.0); MCH 27.9 pg (25.0-35.0); MCHC 33.5 g/dL (31.0-37.0); MCV 83.2 fL (80.0-100.0); Mean Platelet Volume 7.2; Platelet Count 237 k/uL (150-450); RBC 4.43 m/uL (3.80-5.40); RDW 13.2 % (11.5-15.5); WBC 10.3 k/uL (3.8-10.6)
[2020-11-16 14:34] LABS: African American GFR (CKD) >90 (>60 ml/min/1.73 sqM); Glucose 80 mg/dL (74-99); Non-African American GFR(CKD) >90 (>60 ml/min/1.73 sqM)
--- NOTE | 2020-11-16 14:34 | US ---
EXAMINATION TYPE: Transabdominal DATE OF EXAM: 11/16/2020 2:12 PM COMPARISON: NONE CLINICAL HISTORY: Z36 confirm dates. Dates, no issues, EXAM PERFORMED: OBTA EXAM MEASUREMENTS: GESTATIONAL AGE / DATING Physician Established: (8 weeks/0 days) EDC: 0.06/28/2021 Dates by LMP: LMP unknown Dates by First Scan: No previous this is first scan Dates by Current Scan for: (8 weeks/2 days) EDC: 06/26/2012 MATERNAL ANATOMY Uterus: 12.8 x 6.7 x 4.5cm Right Ovary: 1.9 x 1.4 x 1.2cm Left Ovary: 2.8 x 3.0 x 2.6cm Post CDS / Adnexa: wnl Presence of free fluid: no Presence of corpus luteal cyst: 2.1cm on the left ovary Presence of subchorionic bleed: no GESTATION / SURVEY CRL: 1.8cm ( 8 weeks/2 days) MSD: wnl Yolk Sac (normal less than 6mm): 0.3cm Heart Rate: 171 bpm Rhythm: Normal IUP: Viable IUP Date of LMP: unknown IMPRESSION: 1. Single intrauterine gestation estimated at 8 weeks 2 days gestation based on the crown-rump length . Cardiac activity measures 171 bpm.
[2020-11-16 19:46] LABS: Hepatitis B Surface Antigen Non-Reactive (Non-Reactive)
[2020-11-18 04:11] LABS: Toxoplasma Antibody (IgG) <3.0 IU/mL (<7.2); Toxoplasma Antibody (IgM) <3.0 AU/mL (<8.0)
== END | disposition home or self-care (01) ==
LOC: RADUSWWP 13:47
PROVIDERS: ATTEND Obstetrics & Gynecology
DX: Z36.89 Encounter for other specified antenatal screening (principal); Z3A.08 8 weeks gestation of pregnancy; Z34.81 Encounter for supervision of other normal pregnancy, first trimester
CPT/HCPCS: 36415; 76801; 82565; 82947; 85027; 86762; 86777; 86778; 86780; 86850; 86900; 86901; 87340

== ENCOUNTER → 2020-12-08 | Outpatient (CLI) | payer MEDICAID ==
--- NOTE | 2020-12-08 14:47 | US ---
EXAMINATION TYPE: Ultrasound OB <= 14 week fetus DATE OF EXAM: 12/08/2020 12:31 PM COMPARISON: 11/16/2020 CLINICAL HISTORY: 30-year-old female O46.91 Bleeding/spotting. Patient states she has been cramping t hroughout the . Patient states bleeding since Sunday. EXAM PERFORMED: Transabdominal (TA) FINDINGS: EXAM MEASUREMENTS: GESTATIONAL AGE / DATING Physician Established: (11 weeks/1 days) EDC: 06/28/2021 Dates by LMP: LMP unknown Dates by First Scan: (11 weeks/1 days) EDC: 06/28/2021 Dates by Current Scan for: (12 weeks/1 days) EDC: 06/21/2021 MATERNAL ANATOMY Uterus: 11.4 x 8.0 x 5.4 cm Right Ovary: 2.5 x 1.3 x 1.0 cm Left Ovary: 2.9 x 2.5 x 1.4 cm Post CDS / Adnexa: no free fluid Presence of free fluid: no Presence of corpus luteal cyst: left ovarian lesion = 1.5 x 1.9 x 1.4 cm Presence of subchorionic bleed: no GESTATION / SURVEY CRL: 5.4 cm (12 weeks/1 days) MSD: seen, not measured Yolk Sac (normal less than 6mm): Not visualized Heart Rate: 161 bpm Rhythm: Normal IUP: Viable IUP Nuchal Translucency 10-14wks (normal less than 3mm): 1.5 mm Date of LMP: Unknown LMP, Beta HcG (if available): Not available at this time [employer] notes: Single live IUP measuring 12 weeks 1 day IMPRESSION: 1. Single live intrauterine with estimated gestational age of 11 weeks 1 day by LMP. [place] t ultrasound biometry is larger by a week (12 weeks 1 day). 2. Complete survey recommended at 18-20 weeks.
== END | disposition home or self-care (01) ==
LOC: RADUSWWP 12:13
PROVIDERS: ATTEND Obstetrics & Gynecology
DX: O46.91 Antepartum hemorrhage, unspecified, first trimester (principal); Z3A.12 12 weeks gestation of pregnancy
CPT/HCPCS: 76801; 76813

== ENCOUNTER 2021-02-04 11:20 | Outpatient (CLI) | payer BC ==
[2021-02-04 12:16] VITALS: BP 127/72; PULSE 87; RESP 14; TEMP 97.1
--- NOTE | 2021-02-04 14:04 | US ---
EXAMINATION TYPE: US OB >= 14 wk fetus DATE OF EXAM: 02/04/2021 COMPARISON: US CLINICAL HISTORY: spotting and cramping x 8 weeks TECHNIQUE: Transabdominal (TA) GESTATIONAL AGE / DATING Physician Established: (19 weeks/3 days) EDC: 06/28/2021 Dates by LMP: (19 weeks/3 days) EDC: 06/28/2021 Dates by First Scan: (19 weeks/5 days) EDC: 06/26/2021 Dates by Current Scan: (20 weeks/0 days) EDC: 06/24/2021 Beta HCG (if available): na SURVEY IUP: Single PLACENTA: Anterior; FOCAL MYOMETRIAL CONTRACTION WAS NOTED IN SUPERIOR UTERUS AT EXAM'S END PREVIA: No Previa ODETTE: 11.8 cm Normal CERVICAL LENGTH (transabdominal: norm > 3.0cm): 4.6 cm BIOMETRY PRESENTATION: Breech LIE: Longitudinal BPD: 4.5 cm 19 weeks / 4 days HC: 17.6 cm 20 weeks / 1 day AC: 15.1 cm 20 weeks / 2 days FL: 3.5 cm 21 weeks / 0 days ESTIMATED WEIGHT IN GRAMS: 359.2 grams ESTIMATED WEIGHT IN LBS/OZ: 0 lbs. 13 oz. WEIGHT PERCENTAGE BASED ON ESTABLISHED DATES: 95.2% HC/AC: 1.17 Normal FL/AC: 23.16 Normal HEART RATE: 152 bpm RHYTHM: Normal Single, live IUP, 20 weeks/0 days, EDC: 06/24/2021, HR 152bpm; focal myometrial contraction was seen superior uterus at exam's end. IMPRESSION: The ultrasound gestational age is 20 weeks. No complicating process seen. There is satisfactory growt h compared to first exam of 11/16/2020.
--- NOTE | 2021-03-03 11:20 | P.MSEPDOC ---
Presenting Problems - Arrival Data Date of Arrival on Unit: 02/04/21 Time of Arrival on Unit: 11:20 Mode of Transport: Portable - Complaint OB-Reason for Admission/Chief Complaint: Vaginal Bleeding Comment: Spotting Medical History - Information : 2 Para: 1 Term: 1 : 0 Abortions: Spontaneous or Elective: 0 Number of Living Children: 1 - Gestational Age Gestational Age by RENO (wks/days): 19 Weeks and 3 Days Review of Systems - Review of Systems Constitutional: No problems Breast: No problems ENT: No problems Cardiovascular: No problems Respiratory: No problems Gastrointestinal: No problems Genitourinary: No problems Musculoskeletal: No problems Neurological: No problems Skin: No problems Vital Signs - Temperature Temperature: 97.1 F Temperature Source: Tympanic - Pulse Right Brachial Pulse Rate: 87 Pulse Assessment Method: Automatic Cuff - Respirations Respiratory Rate: 14 Oxygen Delivery Method: Room Air - Blood Pressure Right Arm Blood Pressure: 127/72 Blood Pressure Mean: 90 Blood Pressure Source: Automatic Cuff Medical Screen Scoring (Pre) - Cervical Exam Dilation: Exam Deferred Effacement: Exam Deferred Membranes: Intact - Uterine Contractions Frequency: N/A Duration: N/A Intensity: N/A - Maternal Vital Signs Maternal Temperature: N/A Maternal Blood Pressure: N/A Signs of Preeclampsia: N/A Maternal Respirations: N/A - Maternal Trauma Maternal Trauma: N/A - Assessment - Baby A Baseline FHR: 160 Heart Rate - NICHD Category: Category I (Normal) = 0 Station: N/A - Total Score - Baby A Total Score - Baby A: 0 - Total Score - Baby B Total Score - Baby B: 0 - Total Score - Baby C Total Score - Baby C: 0 - Level of Risk - Baby A Level of Risk - Baby A: Low (0-5) - Level of Risk - Baby B Level of Risk - Baby B: Low (0-5) - Level of Risk - Baby C Level of Risk - Baby C: Low (0-5) Physician Notification (Pre) - Physician Notified Physician Notified Date: 02/04/21 Physician Notified Time: 12:15 New Order Received: Yes - Notification Comment Comment: get complete U/S and call back with results. Disposition - Disposition OB Disposition: Observe Discharge Date: 02/04/21 Discharge Time: 12:55 I agree with the RN Medical Screening Exam: Yes Case reviewed; plan agreed upon as documented in EMR&OBIX.: Yes Diagnosis: SPOTTING COMPLICATING , SECOND TRIMESTER
== END 2021-02-04 12:56 | disposition home or self-care (01) ==
LOC: FBPOP 11:20
PROVIDERS: ATTEND Obstetrics & Gynecology
DX: O26.852 Spotting complicating pregnancy, second trimester (principal); Z3A.19 19 weeks gestation of pregnancy
CPT/HCPCS: 76805; 99213

== ENCOUNTER → 2021-02-08 | Outpatient (CLI) | payer BC ==
--- NOTE | 2021-02-08 15:27 | US ---
EXAMINATION TYPE: US OB anatomy transabd DATE OF EXAM: 02/08/2021 COMPARISON: 02/04/2021 HISTORY: O36.62X0 Large for dates anatomy TECHNIQUE: OBTA EXAM MEASUREMENTS: GESTATIONAL AGE / DATING Physician Established: (20 weeks/0 days) EDC: 06/28/2021 Dates by LMP: (20 weeks/0 days) EDC: 06/28/2021 Dates by First Scan: (20 weeks/2 days) EDC: 06/26/2021 Dates by Current Scan for: (20 weeks/4 days) EDC: 06/24/2021 SURVEY IUP: Single PLACENTA: Anterior PREVIA: No previa ODETTE: 14.2 cm Normal CERVICAL LENGTH (transabdominal: norm > 3.0cm): 3.5 cm BIOMETRY PRESENTATION: Breech LIE: Longitudinal BPD: 4.8 cm 20 weeks / 3 days HC: 18.4 cm 20 weeks / 5 days AC: 16.4 cm 21 weeks / 3 days FL: 3.4 cm 20 weeks / 5 days ESTIMATED WEIGHT IN GRAMS: 395 grams ESTIMATED WEIGHT IN LBS/OZ: 0 lbs. 14 oz. WEIGHT PERCENTAGE BASED ON ESTABLISHED DATE: 93 % HC/AC: 1.1 Normal FL/AC: 20.9 Normal HEART RATE: 154 bpm RHYTHM: Normal ANATOMY SEEN (within normal limits): * Lateral Vent (< 1 cm) 0.4 cm * Cisterna Magna (< 1.1 cm) 0.7 cm * Nuchal Fold (< 0.6 cm) 0.4 cm * Cerebellum (varies with age) 2.1 cm Choroid Plexus (bilateral) Midline Falx Cavus Septi Pellucidi Four Chamber Heart Outflow tracts: LVOT/RVOT Stomach Situs Diaphragm Kidneys (bilateral) Bladder Cord Insert Three Vessel Cord Longitudinal Spine Transverse Spine Arms (bilateral) Legs (bilateral) IMPRESSION: Viable 20 week 4 day gestation with a heart rate of 154 bpm.
== END | disposition home or self-care (01) ==
LOC: RADUSWWP 14:16
PROVIDERS: ATTEND Obstetrics & Gynecology
DX: O36.62X0 Maternal care for excessive fetal growth, second trimester, not applicable or unspecified (principal); Z3A.20 20 weeks gestation of pregnancy
CPT/HCPCS: 76811

== ENCOUNTER → 2021-03-14 | Outpatient (CLI) | payer BC ==
[2021-03-14 14:59] LABS: MCH 28.2 pg (27.0-32.0); MCHC 31.4 g/dL (32.0-37.0); MCV 89.7 fL (80.0-97.0); Mean Platelet Volume 11.3 fL (9.5-12.2); Platelet Count 225 X 10*3/uL (140-440); RDW 14.6 % (11.5-14.5); WBC 8.88 X 10*3/uL (4.50-10.00)
== END | disposition home or self-care (01) ==
LOC: LABWHC1 09:47
PROVIDERS: ATTEND Obstetrics & Gynecology
DX: Z34.82 Encounter for supervision of other normal pregnancy, second trimester (principal); Z3A.00 Weeks of gestation of pregnancy not specified
CPT/HCPCS: 36415; 82950; 85027; 86850

== ENCOUNTER 2021-06-21 06:00 | Inpatient (IN) | payer BC ==
[2021-06-17 13:48] VITALS: BMI 38.3
[2021-06-21] MEDS ORDERED: CITRIC ACID-SODIUM CITRATE 15 ML CUP PO ONE (06:27)
[2021-06-21 06:50] LABS: Basophils % (A) 0 %; Eosinophils # (A) 0.1 k/uL (0-0.7); Eosinophils % (A) 1 %; HCT 34.7 % (34.0-46.0); HGB 11.3 gm/dL (11.4-16.0); Lymphocytes # (A) 2.5 k/uL (1.0-4.8); Lymphocytes % (A) 19 %; MCHC 32.7 g/dL (31.0-37.0); MCV 85.8 fL (80.0-100.0); Mean Platelet Volume 9.7; Monocytes # (A) 0.7 k/uL (0-1.0); Monocytes % (A) 5 %; Neutrophils # (A) 9.7 k/uL (1.3-7.7); Neutrophils % (A) 73 %; Platelet Count 207 k/uL (150-450); RBC 4.05 m/uL (3.80-5.40); RDW 14.1 % (11.5-15.5); WBC 13.3 k/uL (3.8-10.6)
[2021-06-21] MEDS: LACTATED RINGERS 1,000 ML IV SCH ×3 (06:51→23:53)
[2021-06-21] MEDS ORDERED: HYDROmorphone (PF) 10 MG/ML VIAL ONE (07:52)
[2021-06-21] MEDS ORDERED: DEXAMETHASONE SOD PHOSPHATE 10 MG/ML 1 ML VIAL ONE (07:52)
[2021-06-21] MEDS ORDERED: PHENYLEPHRINE-0.9% NACL SYG 1,000 MCG/10 ML SYRINGE ONE (07:52)
[2021-06-21] MEDS ORDERED: ONDANSETRON 4 MG/2 ML VIAL ONE (07:52)
[2021-06-21] MEDS ORDERED: MORPHINE SULFATE (PF) 0.3 MG/0.3 ML SYR ONE (07:52)
[2021-06-21] MEDS ORDERED: KETOROLAC 15 MG/ML 1 ML VIAL ONE (07:52)
[2021-06-21] MEDS ORDERED: SIMETHICONE 80 MG CHEWABLE PO PRN (08:46)
[2021-06-21] MEDS ORDERED: NALOXONE 0.4 MG/ML 1 ML VIAL IV PRN (08:46)
[2021-06-21] MEDS ORDERED: diphenhydrAMINE 25 MG CAP PO PRN (08:46)
[2021-06-21] MEDS ORDERED: diphenhydrAMINE 50 MG/ML 1 ML VIAL IVP PRN ×2 (08:46)
[2021-06-21] MEDS ORDERED: LANOLIN CREAM 5 GM TUBE TOPICAL PRN (08:46)
[2021-06-21] MEDS ORDERED: ONDANSETRON 4 MG/2 ML VIAL IVP PRN (08:46)
[2021-06-21] MEDS ORDERED: METOCLOPRAMIDE 5 MG/ML 2 ML VIAL IVP PRN (08:46)
[2021-06-21] MEDS ORDERED: diphenhydrAMINE 50 MG CAP PO PRN (08:46)
[2021-06-21] MEDS ORDERED: ZOLPIDEM 5 MG TAB PO PRN (08:46)
[2021-06-21] MEDS ORDERED: OXYTOCIN 30 UNITS/500 ML NS 30 UNIT in SALINE 1 500ML.BAG IV SCH (09:00)
--- NOTE | 2021-06-21 12:37 | P.HPOB ---
History of Present Illness H&P Date: 06/21/21 Chief Complaint: repeat low transverse 30-year-old presents at 39 weeks' gestation for repeat low transverse C- section. Review of Systems All systems: negative Constitutional: Denies chills, Denies fever Eyes: denies blurred vision, denies pain Ears, nose, mouth and throat: Denies headache, Denies sore throat Cardiovascular: Denies chest pain, Denies shortness of breath Respiratory: Denies cough Gastrointestinal: Denies abdominal pain, Denies diarrhea, Denies nausea, Denies vomiting Genitourinary: Denies dysuria, Denies hematuria Musculoskeletal: Denies myalgias Integumentary: Denies pruritus, Denies rash Neurological: Denies numbness, Denies weakness Psychiatric: Denies anxiety, Denies depression Endocrine: Denies fatigue, Denies weight change Past Medical History Past Medical History: No Reported History Additional Past Medical History / Comment(s): Obstetric history: First was a . This is her second she's had care with me since first trimester. Blood type is B- antibodies negative rubella immune hepatitis B negative HIV nonreactive RPR nonreactive and GBS negative. History of Any Multi-Drug Resistant Organisms: None Reported Past Surgical History: Section Additional Past Surgical History / Comment(s): wisdom teeth removed Past Anesthesia/Blood Transfusion Reactions: No Reported Reaction Past Psychological History: No Psychological Hx Reported Smoking Status: Never smoker Past Alcohol Use History: None Reported Past Drug Use History: None Reported - Past Family History Father Family Medical History: Hypertension Medications and Allergies Home Medications Medication Instructions Recorded Confirmed Type Pnv No.95/Ferrous Fum/Folic AC 1 each PO DAILY 06/17/21 06/21/21 History [ Multivitamin Tablet] Penicillin V Potassium [Pen Vee K] 500 mg PO Q6H 06/21/21 06/21/21 History Allergies Allergy/AdvReac Type Severity Reaction Status Date / Time No Known Allergies Allergy Verified 06/21/21 06:24 Exam Osteopathic Statement: *. No significant issues noted on an osteopathic struct ural exam other than those noted in the History and Physical/Consult. Vital Signs Temp Pulse Resp BP Pulse Ox 06/21/21 12:00 97.2 F L 79 16 102/60 97 06/21/21 10:31 97.0 F L 72 18 99/57 98 06/21/21 10:01 79 18 99/56 98 06/21/21 09:31 81 18 99/58 98 06/21/21 09:16 98.5 F 86 17 96/55 93 L 06/21/21 09:01 85 16 89/50 100 06/21/21 08:46 98.5 F 88 16 84/51 100 06/21/21 08:31 97.4 F L 88 17 81/51 06/21/21 06:21 96.5 F L 108 H 16 117/73 97 Intake and Output 06/20/21 06/21/21 06/21/21 22:59 06:59 14:59 Intake Total 500 Output Total 350 Balance 150 Intake: IV 500 Output: Urine 150 Estimated Blood Loss 200 Other: Voiding Method Indwelling Catheter Weight 92.079 kg Heart: Regular rate and rhythm Lungs: Clear to auscultation bilaterally Abdomen: Soft, nontender Extremities: Negative Homans sign Results Result Diagrams: 06/21/21 06:40 Abnormal Lab Results - Last 24 Hours (Table) 06/21/21 Range/Units 06:40 WBC 13.3 H (3.8-10.6) k/uL Hgb 11.3 L (11.4-16.0) gm/dL Neutrophils # 9.7 H (1.3-7.7) k/uL Assessment and Plan (1) Previous section Current Visit: Yes Status: Acute Code(s): Z98.891 - HISTORY OF UTERINE SCAR FROM PREVIOUS SURGERY SNOMED Code(s): 224623808 (2) 39 weeks gestation of Current Visit: Yes Status: Acute Code(s): Z3A.39 - 39 WEEKS GESTATION OF SNOMED Code(s): 53913201 Plan: 1. Repeat low transverse
--- NOTE | 2021-06-21 12:39 | P.OP ---
Date of Procedure: 06/21/21 Preoperative Diagnosis: 1. at 39 weeks 2. Previous Postoperative Diagnosis: Same Procedure(s) Performed: Repeat low transverse Anesthesia: spinal Surgeon: Becki Andino [employer] Consultant #1: Greg Young Estimated Blood Loss (ml): 250 IV fluids (ml): 500 Urine output (ml): 100 Pathology: none sent Condition: stable Disposition: floor Operative Findings: Viable male, Apgars 9, 9, weight 8 lbs. 4 oz. normal uterus tubes and ovaries. Description of Procedure: Patient was taken to the operating room where spinal anesthesia was found be adequate. She was prepped and draped in normal sterile fashion in dorsal supine position with a leftward tilt. Pfannenstiel skin incision was made the scalpel and carried through to the underlying layer of fascia with the scalpel. Fascia was incised in midline and carried bilaterally with the Mao scissors. The superior aspect of the fascial incision was grasped with Erika clamps elevated and the underlying rectus muscles dissected off with the Mao's. Attention was then turned to inferior aspect of same incision which in a similar fashion was grasped tented up and the underlying rectus muscles dissected off with the Mao's. The rectus muscles were the midline and the peritoneum was identified tented up and entered sharply with the scalpel. The incision was extended superiorly and inferiorly with good visualization of the bladder. The bladder blade was inserted and the vesicouterine peritoneum was incised the Metzenbaums then carried bilaterally and bladder flap created digitally. A low transverse incision was then made on the uterus with the scalpel. This was carried bilaterally and digital manner. Infant's head delivered atraumatically, nose and mouth bulb suctioned, cord clamped and cut, handed off to waiting nurses. Apgars 9,9, weight 8 lbs. 4 oz. Placenta delivered manually, intact with three-vessel cord. The uterus is exteriorized and cleared of all clots and debris. The uterine incision was closed with 0 Vicryl in a running locked fashion. Second layer of the same sutures used in imbricating fashion to obtain excellent hemostasis. Both ovaries and tubes appeared normal. The uterus was placed back into the abdomen. The peritoneum was reapproximated using 2-0 Vicryl in a running fashion. The muscles were reapproximated using 2- 0 Vicryl in interrupted fashion. The fascia was reapproximated using 0 Vicryl in a running fashion. The subcutaneous tissues closed with 3-0 Vicryl running fashion. The skin was closed ejrrod. Patient tolerated the procedure well, sponge and instrument counts were correct times 2 and she was taken to the recovery room in stable condition.
[2021-06-21 13:32] LABS: Glucose,Whole Blood 117 mg/dL (75-99)
[2021-06-21] MEDS: KETOROLAC 15 MG/ML 1 ML VIAL IVP SCH ×2 (14:21→20:48)
[2021-06-21] MEDS: IBUPROFEN 600 MG TAB PO SCH ×2 (15:24→20:51)
[2021-06-21] MEDS: ACETAMINOPHEN TAB 500 MG TAB PO SCH ×2 (15:24→18:14)
[2021-06-21] MEDS: PENICILLIN V POTASSIUM 250 MG TAB PO SCH ×2 (18:12→20:50)
[2021-06-21] MEDS: SENNOSIDES-DOCUSATE SODIUM 1 EACH TAB PO SCH (20:47)
[2021-06-22] MEDS: ACETAMINOPHEN TAB 500 MG TAB PO SCH ×5 (00:28→23:47)
[2021-06-22] MEDS: KETOROLAC 15 MG/ML 1 ML VIAL IVP SCH ×2 (04:07→19:25)
[2021-06-22] MEDS: IBUPROFEN 600 MG TAB PO SCH ×4 (04:08→19:53)
[2021-06-22] MEDS: LACTATED RINGERS 1,000 ML IV SCH ×2 (05:02→19:25)
[2021-06-22 06:32] LABS: Basophils % (A) 0 %; Eosinophils % (A) 0 %; HCT 31.2 % (34.0-46.0); HGB 10.3 gm/dL (11.4-16.0); Lymphocytes # (A) 3.3 k/uL (1.0-4.8); Lymphocytes % (A) 21 %; MCH 28.1 pg (25.0-35.0); MCHC 32.9 g/dL (31.0-37.0); MCV 85.3 fL (80.0-100.0); Mean Platelet Volume 9.3; Monocytes # (A) 0.7 k/uL (0-1.0); Monocytes % (A) 4 %; Neutrophils # (A) 11.5 k/uL (1.3-7.7); Neutrophils % (A) 72 %; Platelet Count 228 k/uL (150-450); RBC 3.66 m/uL (3.80-5.40); RDW 14.5 % (11.5-15.5); WBC 15.9 k/uL (3.8-10.6)
--- NOTE | 2021-06-22 07:09 | P.PN ---
Progress Note - Text Progress Note Date: 06/22/21 Patient seen and examined at bedside POD 1 s/p . Patient received spinal with duramorph for anesthetic. Procedure was uneventful. Patient reports pain well controlled with duramorph and oral medication. Patient denies CRUZ, F/C, N/V. Patient is able to ambulate and has used the bathroom. Site is clean and without erythema. Continue to follow while at hospital.
--- NOTE | 2021-06-22 07:35 | P.PNOBGPC ---
Subjective - Subjective Principal diagnosis: S/P 1*LTCS POD #1 Interval history: Pt seen and examined. Denies N/v, F/C, CP, SOB, calf pain. Patient reports: Reports appetite normal, Reports voiding normally, Reports pain well controlled, Reports ambulating normally [place]: doing well Objective - Vital Signs Latest vital signs: Vital Signs Temp Pulse Resp BP Pulse Ox 06/22/21 04:00 98.0 F 93 18 130/74 06/22/21 00:00 98.6 F 97 18 130/70 06/21/21 20:00 98.3 F 97 18 123/72 06/21/21 16:00 97.7 F 84 18 104/64 95 06/21/21 12:00 97.2 F L 79 16 102/60 97 06/21/21 10:31 97.0 F L 72 18 99/57 98 06/21/21 10:01 79 18 99/56 98 06/21/21 09:31 81 18 99/58 98 06/21/21 09:16 98.5 F 86 17 96/55 93 L 06/21/21 09:01 85 16 89/50 100 06/21/21 08:46 98.5 F 88 16 84/51 100 06/21/21 08:31 97.4 F L 88 17 81/51 Intake and Output 06/21/21 06/22/21 06/22/21 22:59 06:59 14:59 Output Total 300 Balance -300 Output: Urine 300 Other: Voiding Method Indwelling Catheter # Voids 2 - Exam Lungs: bilateral: normal Chest: Normal S1, Normal S2 Extremities: Present: normal Abdomen: Present: normal appearance, soft. Absent: distention, tenderness Incision: Present: normal, dry, intact Uterus: Present: normal, firm - Labs Labs: Abnormal Lab Results - Last 24 Hours (Table) 06/21/21 06/22/21 Range/Units 13:25 05:58 WBC 15.9 H (3.8-10.6) k/uL RBC 3.66 L (3.80-5.40) m/uL Hgb 10.3 L (11.4-16.0) gm/dL Hct 31.2 L (34.0-46.0) % Neutrophils # 11.5 H (1.3-7.7) k/uL POC Glucose (mg/dL) 117 H (75-99) mg/dL Assessment and Plan (1) Previous section Current Visit: Yes Status: Resolved Code(s): Z98.891 - HISTORY OF UTERINE SCAR FROM PREVIOUS SURGERY SNOMED Code(s): 129632638 (2) 39 weeks gestation of Current Visit: Yes Status: Resolved Code(s): Z3A.39 - 39 WEEKS GESTATION OF SNOMED Code(s): 97012791 (3) Status post repeat low transverse section Current Visit: Yes Status: Acute Code(s): Z98.891 - HISTORY OF UTERINE SCAR FROM PREVIOUS SURGERY SNOMED Code(s): 480234461 Plan: 1. increase ambulation 2. cont pain control
[2021-06-22] MEDS: PENICILLIN V POTASSIUM 250 MG TAB PO SCH ×4 (08:30→22:05)
[2021-06-22] MEDS: SENNOSIDES-DOCUSATE SODIUM 1 EACH TAB PO SCH ×2 (08:30→21:16)
[2021-06-23] MEDS: IBUPROFEN 600 MG TAB PO SCH ×2 (03:12→09:28)
[2021-06-23] MEDS: ACETAMINOPHEN TAB 500 MG TAB PO SCH (06:05)
[2021-06-23] MEDS: SENNOSIDES-DOCUSATE SODIUM 1 EACH TAB PO SCH (08:33)
--- NOTE | 2021-06-23 08:45 | P.DS ---
Providers Date of admission: 06/21/21 06:00 Expected date of discharge: 06/23/21 Attending physician: Becki Andino Primary care physician: Stated None - Discharge Diagnosis(es) (1) Previous section Current Visit: Yes Status: Resolved (2) 39 weeks gestation of Current Visit: Yes Status: Resolved (3) Status post repeat low transverse section Current Visit: Yes Status: Acute Hospital Course: She presented for repeat low transverse . She underwent this procedure without complication. Denies nausea, vomiting, chest pain, shortness of breath or any calf pain. Her pain is well-controlled. She'll be discharged home day #2 in stable condition to follow-up with me in one week. Plan - Discharge Summary Discharge Rx Participant: No New Discharge Prescriptions: New Ibuprofen [Motrin] 600 mg PO Q6H #30 tab oxyCODONE HCL [OxyIR] 5 mg PO Q4HR PRN #18 tab PRN Reason: Pain Scale 4 - 6 No Action Pnv No.95/Ferrous Fum/Folic AC [ Multivitamin Tablet] 1 each PO DAILY Penicillin V Potassium [Pen Vee K] 500 mg PO Q6H Discharge Medication List Pnv No.95/Ferrous Fum/Folic AC [ Multivitamin Tablet] 1 each PO DAILY 06/17/21 [History] Penicillin V Potassium [Pen Vee K] 500 mg PO Q6H 06/21/21 [History] Ibuprofen [Motrin] 600 mg PO Q6H #30 tab 06/23/21 [Rx] oxyCODONE HCL [OxyIR] 5 mg PO Q4HR PRN #18 tab 06/23/21 [Rx] Follow up Appointment(s)/Referral(s): Becki Andino DO [Doctor of Osteopathic Medicine] - 08/05/21 11:15 am (Post Op 06-30-2021 @ 01:30 p.m.) Discharge Disposition: HOME SELF-CARE
[2021-06-23] MEDS: PENICILLIN V POTASSIUM 250 MG TAB PO SCH (09:27)
[2021-06-23 14:09] VITALS: BP 123/70; PULSE 91; RESP 16; TEMP 97.7
== END 2021-06-23 12:48 | disposition home or self-care (01) | DRG 788 ==
LOC: 4FBP 06:00 → EDSTATUS 08:00
PROVIDERS: ADMIT Obstetrics & Gynecology; ATTEND Obstetrics & Gynecology
PROC: 10D00Z1 Extraction of Products of Conception, Low, Open Approach (ICD-10-PCS; principal; 2021-06-21 08:00)
DX: O34.211 Maternal care for low transverse scar from previous cesarean delivery (principal); Z37.0 Single live birth; Z3A.39 39 weeks gestation of pregnancy
CPT/HCPCS: 85025; 86850; 86900; 86901

== ENCOUNTER 2023-06-14 18:02 | Emergency (ER) | payer BC, OTHER ==
[2023-06-14 18:19] VITALS: RESP 18; TEMP 98.7
[2023-06-14 19:21] LABS: Basophils % (A) 0 %; Eosinophils # (A) 0.1 k/uL (0-0.7); Eosinophils % (A) 1 %; HCT 43.4 % (34.0-46.0); HGB 14.3 gm/dL (11.4-16.0); Lymphocytes # (A) 1.6 k/uL (1.0-4.8); Lymphocytes % (A) 30 %; MCH 27.5 pg (25.0-35.0); MCHC 32.9 g/dL (31.0-37.0); MCV 83.5 fL (80.0-100.0); Mean Platelet Volume 7.4; Monocytes # (A) 0.3 k/uL (0-1.0); Monocytes % (A) 6 %; Neutrophils # (A) 3.2 k/uL (1.3-7.7); Neutrophils % (A) 61 %; Platelet Count 192 k/uL (150-450); RBC 5.19 m/uL (3.80-5.40); WBC 5.2 k/uL (3.8-10.6)
[2023-06-14 19:40] LABS: ALT 17 U/L (4-34); AST 28 U/L (14-36); African American GFR (CKD) >90 (>60 ml/min/1.73 sqM); Alkaline Phosphatase 111 U/L (38-126); Amylase 42 U/L (30-110); Anion Gap 8 mmol/L; Blood Urea Nitrogen 10 mg/dL (7-17); Calcium 9.4 mg/dL (8.4-10.2); Carbon Dioxide 28 mmol/L (22-30); Chloride 101 mmol/L (98-107); Glucose 94 mg/dL (74-99); Lipase 115 U/L (23-300); Non-African American GFR(CKD) 87 (>60 ml/min/1.73 sqM); Potassium 4.3 mmol/L (3.5-5.1); Sodium 137 mmol/L (137-145); Total Bilirubin 0.4 mg/dL (0.2-1.3); Total Protein 7.6 g/dL (6.3-8.2)
[2023-06-14 19:48] LABS: Appearance,Urine Clear (Clear); Bilirubin,Urine Negative (Negative); Blood,Urine Negative (Negative); Color,Urine Colorless; Glucose,Urine (UA) Negative (Negative); Ketones,Urine Negative (Negative); Leukocyte Esterase,Urine Negative (Negative); Nitrite,Urine Negative (Negative); PH, Urine 6.5 (5.0-8.0); Protein,Urine Negative (Negative); Urobilinogen,Urine <2.0 mg/dL (<2.0)
--- NOTE | 2023-06-14 19:56 | ED ---
General Adult HPI - General Chief complaint: Abdominal Pain Stated complaint: unexplained fever and flank pain Time Seen by Provider: 06/14/23 18:24 Source: patient, RN notes reviewed Mode of arrival: ambulatory - History of Present Illness Initial comments: 32-year-old female presents emergency Department with chief complaint of right- sided flank pain 1 day. She reports that she was evaluated at urgent care earlier today and a UA was obtained which was normal according to the patient. She does admit to some suprapubic discomfort that also started today. She states that she had a low-grade fever of Sunday and Sunday. She feels well otherwise. Denies cough, congestion, nausea, vomiting, diarrhea. - Related Data Home Medications Medication Instructions Recorded Confirmed Pnv No.95/Ferrous Fum/Folic AC 1 each PO DAILY 06/17/21 06/21/21 [ Multivitamin Tablet] Penicillin V Potassium [Pen Vee K] 500 mg PO Q6H 06/21/21 06/21/21 Previous Rx's Medication Instructions Recorded Ibuprofen [Motrin] 600 mg PO Q6H #30 tab 06/23/21 oxyCODONE HCL [OxyIR] 5 mg PO Q4HR PRN #18 tab 06/23/21 Allergies Allergy/AdvReac Type Severity Reaction Status Date / Time No Known Allergies Allergy Verified 06/14/23 18:18 Review of Systems ROS Statement: Those systems with pertinent positive or pertinent negative responses have been documented in the HPI. ROS Other: All systems not noted in ROS Statement are negative. Past Medical History Past Medical History: No Reported History Additional Past Medical History / Comment(s): Obstetric history: First was a . This is her second she's had care with me since first trimester. Blood type is B- antibodies negative rubella immune hepatitis B negative HIV nonreactive RPR nonreactive and GBS negative. History of Any Multi-Drug Resistant Organisms: None Reported Past Surgical History: Section Additional Past Surgical History / Comment(s): wisdom teeth removed Past Anesthesia/Blood Transfusion Reactions: No Reported Reaction Past Psychological History: No Psychological Hx Reported Smoking Status: Never smoker Past Alcohol Use History: None Reported Past Drug Use History: None Reported - Past Family History Father Family Medical History: Hypertension General Exam Limitations: no limitations General appearance: alert, in no apparent distress Head exam: Present: atraumatic, normocephalic, normal inspection Eye exam: Present: normal appearance, PERRL, EOMI. Absent: scleral icterus, conjunctival injection, periorbital swelling ENT exam: Present: normal exam, mucous membranes moist Neck exam: Present: normal inspection. Absent: tenderness, meningismus, lymphadenopathy Respiratory exam: Present: normal lung sounds bilaterally. Absent: respiratory distress, wheezes, rales, rhonchi, stridor Cardiovascular Exam: Present: regular rate, normal rhythm, normal heart sounds. Absent: systolic murmur, diastolic murmur, rubs, gallop, clicks GI/Abdominal exam: Present: soft, normal bowel sounds. Absent: distended, tenderness, guarding, rebound, rigid Extremities exam: Present: normal inspection, full ROM, normal capillary refill. Absent: tenderness, pedal edema, joint swelling, calf tenderness Back exam: Present: normal inspection Neurological exam: Present: alert, oriented X3 Psychiatric exam: Present: normal affect, normal mood Skin exam: Present: warm, dry, intact, normal color. Absent: rash Course Vital Signs 06/14/23 06/14/23 18:15 21:38 Temperature 98.7 F Pulse Rate 104 H 74 Respiratory 18 18 Rate Blood Pressure 175/105 122/78 O2 Sat by Pulse 98 98 Oximetry Medical Decision Making - Medical Decision Making Was pt. sent in by a medical professional or institution (JACKI Love, H[employer]ISHER, urgent care, hospital, or prison...) When possible be specific @ -No Did you speak to anyone other than the patient for history (EMS, parent, family, police, friend...)? What history was obtained from this source @ -No Did you review nursing and triage notes (agree or disagree)? Why? @ -I reviewed and agree with nursing and triage notes Were old charts reviewed (outside hosp., previous admission, EMS record, old EKG, old radiological studies, urgent care reports/EKG's, prison records)? Report findings @ -No old charts were reviewed Differential Diagnosis (chest pain, altered mental status, abdominal pain women, abdominal pain men, vaginal bleeding, weakness, fever, dyspnea, syncope, headache, dizziness, GI bleed, back pain, seizure, CVA, palpatations, mental health, musculoskeletal)? @ -Differential Abdominal Pain Women: Appendicitis, Cholecystitis, diverticulosis, ischemic bowel, pancreatitis, hepatitis, UTI, gastroenteritis, AAA, incarcerated hernia, bowel obstruction, constipation, inflammatory bowel, hepatitis, peptic ulcer disease, splenic infarction, perforated viscus, vulvitis, ovarian torsion, PID, kidney stone, placenta abruption, this is not meant to be an all-inclusive list EKG interpreted by me (3pts min.). @ -None X-rays interpreted by me (1pt min.). @ -None done CT interpreted by me (1pt min.). @ -None done U/S interpreted by me (1pt. min.). @ -None done What testing was considered but not performed or refused? (CT, X-rays, U/S, labs)? Why? @ -None What meds were considered but not given or refused? Why? @ -None Did you discuss the management of the patient with other professionals (jonas guy i.e. , PA, HOT STRIP FINISHER, lab, RT, psych nurse, social sciences lecturer, woodworking machine offbearer, teacher, finance officer, vocational case manager)? Give summary @ -No Was smoking cessation discussed for >3mins.? @ -No Was critical care preformed (if so, how long)? @ -No Were there social determinants of health that impacted care today? How? (Homelessness, low income, unemployed, alcoholism, drug addiction, transpor tation, low edu. Level, literacy, decrease access to med. care, intermediate, rehab)? @ -No Was there de-escalation of care discussed even if they declined (Discuss DNR or withdrawal of care, Hospice)? DNR status @ -No What co-morbidities impacted this encounter? (DM, HTN, Smoking, COPD, CAD, Cancer, CVA, ARF, Chemo, Hep., AIDS, mental health diagnosis, sleep apnea, morbid obesity)? @ -None Was patient admitted / discharged? Hospital course, mention meds given and route, prescriptions, significant lab abnormalities, going to OR and other pertinent info. @ -Discharged. Patient presented to emergency department with chief complaint of right-sided flank pain 1 day. She admits to associated fever. Patient is afebrile in the ED. Laboratory studies obtained which were within normal limits. UA negative for blood, leukocyte esterase, nitrites. Discussed findings with patient who is agreeable with discharge plan and return precautions discussed. Patient stable at time of discharge. Case discussed with my attending, Dr. Gallego who also evaluated the patient and agrees with plan. Undiagnosed new problem with uncertain prognosis? @ -No Drug Therapy requiring intensive monitoring for toxicity (Heparin, Nitro, Insulin, Cardizem)? @ -No Were any procedures done? @ -No Diagnosis/symptom? @ -right flank pain Acute, or Chronic, or Acute on Chronic? @ -acute Uncomplicated (without systemic symptoms) or Complicated (systemic symptoms)? @ -uncomplicated Side effects of treatment? @ -No Exacerbation, Progression, or Severe Exacerbation? @ -No Poses a threat to life or bodily function? How? (Chest pain, [place], [place], pneumonia, PE, COPD, DKA, ARF, appy, cholecystitis, CVA, Diverticulitis, Homicidal, Suicidal, threat to staff... and all critical care pts) @ -No - Lab Data Result diagrams: 06/14/23 19:00 06/14/23 19:00 Lab Results 06/14/23 06/14/23 06/14/23 Range/Units 19:00 19:00 19:00 WBC 5.2 (3.8-10.6) k/uL RBC 5.19 (3.80-5.40) m/uL Hgb 14.3 (11.4-16.0) gm/dL Hct 43.4 (34.0-46.0) % MCV 83.5 (80.0-100.0) fL MCH 27.5 (25.0-35.0) pg MCHC 32.9 (31.0-37.0) g/dL RDW 13.0 (11.5-15.5) % Plt Count 192 (150-450) k/uL MPV 7.4 Neutrophils % 61 % Lymphocytes % 30 % Monocytes % 6 % Eosinophils % 1 % Basophils % 0 % Neutrophils # 3.2 (1.3-7.7) k/uL Lymphocytes # 1.6 (1.0-4.8) k/uL Monocytes # 0.3 (0-1.0) k/uL Eosinophils # 0.1 (0-0.7) k/uL Basophils # 0.0 (0-0.2) k/uL Sodium 137 (137-145) mmol/L Potassium 4.3 (3.5-5.1) mmol/L Chloride 101 (98-107) mmol/L Carbon Dioxide 28 (22-30) mmol/L Anion Gap 8 mmol/L BUN 10 (7-17) mg/dL Creatinine 0.88 (0.52-1.04) mg/dL Est GFR (CKD-EPI)AfAm >90 (>60 ml/min/1.73 sqM) Est GFR (CKD-EPI)NonAf 87 (>60 ml/min/1.73 sqM) Glucose 94 (74-99) mg/dL Plasma Lactic Acid Sergio 1.1 (0.7-2.0) mmol/L Calcium 9.4 (8.4-10.2) mg/dL Total Bilirubin 0.4 (0.2-1.3) mg/dL AST 28 (14-36) U/L ALT 17 (4-34) U/L Alkaline Phosphatase 111 (38-126) U/L Total Protein 7.6 (6.3-8.2) g/dL Albumin 4.0 (3.5-5.0) g/dL Amylase 42 (30-110) U/L Lipase 115 (23-300) U/L Urine Color Urine Appearance (Clear) Urine pH (5.0-8.0) Ur Specific [place] (1.001-1.035) Urine Protein (Negative) Urine Glucose (UA) (Negative) Urine Ketones (Negative) Urine Blood (Negative) Urine Nitrite (Negative) Urine Bilirubin (Negative) Urine Urobilinogen (<2.0) mg/dL Ur Leukocyte Esterase (Negative) Urine HCG, Qual (Not Detectd) Influenza Type A (PCR) (Not Detectd) Influenza Type B (PCR) (Not Detectd) RSV (PCR) (Not Detectd) SARS-CoV-2 (PCR) (Not Detectd) 06/14/23 06/14/23 06/14/23 Range/Units 19:00 19:25 19:25 WBC (3.8-10.6) k/uL RBC (3.80-5.40) m/uL Hgb (11.4-16.0) gm/dL Hct (34.0-46.0) % MCV (80.0-100.0) fL MCH (25.0-35.0) pg MCHC (31.0-37.0) g/dL RDW (11.5-15.5) % Plt Count (150-450) k/uL MPV Neutrophils % % Lymphocytes % % Monocytes % % Eosinophils % % Basophils % % Neutrophils # (1.3-7.7) k/uL Lymphocytes # (1.0-4.8) k/uL Monocytes # (0-1.0) k/uL Eosinophils # (0-0.7) k/uL Basophils # (0-0.2) k/uL Sodium (137-145) mmol/L Potassium (3.5-5.1) mmol/L Chloride (98-107) mmol/L Carbon Dioxide (22-30) mmol/L Anion Gap mmol/L BUN (7-17) mg/dL Creatinine (0.52-1.04) mg/dL Est GFR (CKD-EPI)AfAm (>60 ml/min/1.73 sqM) Est GFR (CKD-EPI)NonAf (>60 ml/min/1.73 sqM) Glucose (74-99) mg/dL Plasma Lactic Acid Sergio (0.7-2.0) mmol/L Calcium (8.4-10.2) mg/dL Total Bilirubin (0.2-1.3) mg/dL AST (14-36) U/L ALT (4-34) U/L Alkaline Phosphatase (38-126) U/L Total Protein (6.3-8.2) g/dL Albumin (3.5-5.0) g/dL Amylase (30-110) U/L Lipase (23-300) U/L Urine Color Colorless Urine Appearance Clear (Clear) Urine pH 6.5 (5.0-8.0) Ur Specific [place] 1.010 (1.001-1.035) Urine Protein Negative (Negative) Urine Glucose (UA) Negative (Negative) Urine Ketones Negative (Negative) Urine Blood Negative (Negative) Urine Nitrite Negative (Negative) Urine Bilirubin Negative (Negative) Urine Urobilinogen <2.0 (<2.0) mg/dL Ur Leukocyte Esterase Negative (Negative) Urine HCG, Qual Not Detected (Not Detectd) Influenza Type A (PCR) Not Detected (Not Detectd) Influenza Type B (PCR) Not Detected (Not Detectd) RSV (PCR) Not Detected (Not Detectd) SARS-CoV-2 (PCR) Not Detected (Not Detectd) Disposition Clinical Impression: Flank pain Disposition: HOME SELF-CARE Condition: Stable Additional Instructions: Please follow up with your primary care provider. Return to the emergency department for new or worsening symptoms. Is patient prescribed a controlled substance at d/c from ED?: No Referrals: Roge Velasquez DO [Primary Care Provider] - 1-2 days
[2023-06-14 21:39] VITALS: BP 122/78; PULSE 74
== END 2023-06-14 21:38 | disposition home or self-care (01) ==
LOC: EC 18:02
DX: R10.31 Right lower quadrant pain (principal); Z20.822 Contact with and (suspected) exposure to COVID-19
CPT/HCPCS: 36415; 80053; 81003; 81025; 82150; 83605; 83690; 85025; 87636; 99284

== ENCOUNTER → 2023-09-21 | Outpatient (CLI) | payer BC ==
--- NOTE | 2023-10-12 12:23 | HM ---
HOLTER MONITOR REPORT A 48-hour Holter. INDICATIONS: This is a 48-hour Holter to evaluate palpitations. FINDINGS: Underlying rhythm is sinus with an average heart rate of 80 beats per minute. Heart rate varied from 42 beats per minute to 157 beats per minute. Occasional PVCs and PACs are noted. There were no episodes of sustained ventricular or supraventricular tachyarrhythmias and no episodes of more than 2-second pauses. CONCLUSION: This 48-hour Holter revealed sinus rhythm with sinus bradycardia and sinus tachycardia with occasional PVCs and PACs. MMODL / IJN: [id number] /
== END | disposition home or self-care (01) ==
LOC: RADECHMAIN 07:44
PROVIDERS: ATTEND Family Medicine
DX: I49.3 Ventricular premature depolarization (principal); I49.1 Atrial premature depolarization; R00.2 Palpitations; R42 Dizziness and giddiness; R00.0 Tachycardia, unspecified
CPT/HCPCS: 93225; 93226